=== PATIENT | female | born 1995 | race African-American/Black ===

== ENCOUNTER 2019-03-09 21:41 | Emergency (ER) | payer MEDICAID ==
[~2019-03-09] VITALS: Ht 167.6 cm; Wt 77.1 kg
[2019-03-09 21:50] VITALS: BP 118/70
--- NOTE | 2019-03-09 21:50 | NUR ---
ED Nurse Note: patient walked in to ED accompanied by her friend. C/O asthma exacerbation with SOB. patient appear to be calm and relaxed. Sp02 is 100% in room air. VSS. Patient is alert x 4 able to ambulate without difficuty. bed is in lowest position. safety measures provided. will continue to monitor
[2019-03-09] MEDS ORDERED: Ipratropium 0.02% Inh Soln 2.5ml UD HHN ONE (22:15)
[2019-03-09] MEDS ORDERED: Dexamethasone 20mg/5ml IVP ONE (22:15)
[2019-03-09] MEDS: Ipratropium 0.02% Inh Soln 2.5ml UD HHN SCH ×2 (22:25→22:42)
[2019-03-09] MEDS ORDERED: Solu-MEDROL 125mg Inj IVP ONE (22:30)
--- NOTE | 2019-03-09 23:02 | Emergency Room Report ---
History of Present Illness General Chief Complaint: Asthma Source: Patient Present Illness HPI 23-year-old female history of asthma, history of smoking presents with shortness of breath that started prior to arrival, patient states that she is been utilizing her pump, she is to prior to arrival which has helped, no aggravating factors, she does endorse some cough, no chest pain no abdominal pain she presents for evaluation Allergies: Coded Allergies: MOLD (Verified Allergy, Unknown, 03/09/19) Uncoded Allergies: POLLEN (Allergy, Unknown, 03/09/19) Patient History Past Medical History: see triage record Social History: Reports: smoking Last Menstrual Period: 02/16/19 Now: No Reviewed Nursing Documentation: PMH: Agreed; PSxH: Agreed Nursing Documentation-PMH Hx Asthma: Yes Review of Systems Constitutional: Denies: chills, fever Eye: Denies: blurred vision, double vision ENT: Denies: throat pain, nasal discharge Respiratory: Reports: cough, shortness of breath, wheezing Cardiovascular: Denies: chest pain, palpitations Gastrointestinal: Denies: abdominal pain, diarrhea, nausea, vomiting Genitourinary: Denies: dysuria, pain Musculoskeletal: Denies: back pain, muscle pain Skin: Denies: rash, lesions Neurological: Denies: headache, focal weakness Hematologic/Lymphatic: Denies: easy bleeding, easy bruising All Other Systems: negative except mentioned in HPI Physical Exam Vital Signs Date Time Temp Pulse Resp B/P (MAP) Pulse Ox O2 Delivery O2 Flow Rate FiO2 03/09/19 21:44 98.1 97 18 120/75 (90) 95 Room Air 03/09/19 22:25 21 Sp02 EP Interpretation: reviewed, normal General Appearance: well appearing, no apparent distress, alert, other - Patient is on cell phone comfortable Head: normocephalic, atraumatic Eyes: bilateral eye PERRL, bilateral eye EOMI ENT: uvula midline, moist mucus membranes Neck: supple, thyroid normal, supple/symm/no masses Respiratory: no respiratory distress, no retraction, no accessory muscle use, wheezing - Wheezing mild bilaterally Cardiovascular #1: normal peripheral pulses, regular rate, rhythm, no edema, no gallop, no murmur Gastrointestinal: non tender, soft, no guarding, no rebound Musculoskeletal: normal inspection Neurologic: alert, oriented x3 Psychiatric: mood/affect normal Skin: no rash, warm/dry Medical Decision Making Diagnostic Impression: Primary Impression: Asthma Additional Impression: Asthma attack ER Course Patient most likely with an asthma exacerbation low suspicion for ACS, low suspicion for PE, patient's tachycardia is most likely resulted from her albuterol inhaler prior to coming Duo nebs, steroids, Chest x-ray shows no sign of pneumonia Patient improved with DuoNeb treatment, disposition home with return precautions , patient was medically complex [place] better after DuoNeb's, disposition home with return precautions Chest X-Ray Diagnostic Results Chest X-Ray Diagnostic Results : Chest X-Ray Ordered: Yes # of Views/Limited/Complete: 1 View Indication: Shortness of Breath EP Interpretation: Yes Interpretation: no consolidation, no effusion, no pneumothorax, no acute cardiopulmonary disease Impression: No acute disease Electronically Signed by: Bharathi Luna MD Last Vital Signs Date Time Temp Pulse Resp B/P (MAP) Pulse Ox O2 Delivery O2 Flow Rate FiO2 03/09/19 22:42 81 18 100 Room Air 21 03/09/19 21:50 98.5 118/70 Disposition: HOME, SELF-CARE Condition: Stable Scripts Prednisone* (PREDNISONE*) 20 Mg Tablet 40 MG ORAL DAILY for 4 Days, #8 TAB Prov: Bharathi Luna MD 03/10/19 Albuterol Sulfate* (ALBUTEROL SULFATE MDI*) 8.5 Gm Hfa.aer.ad 2 PUFF INH Q6H PRN for Shortness of Breath, #1 EA 0 Refills Prov: Bharathi Luna MD 03/10/19 Referrals: [facility]ERR[facility] (PCP) [facility] Patient Instructions: Asthma, Adult Additional Instructions: The patient was provided with discharge instructions, notified to follow-up with a primary care doctor and or specialist in the next 24-48 hours, and to return to the ED if they have worsening of their symptoms. Please note that this report is being documented using [employer] technology. This can lead to erroneous entry secondary to incorrect interpretation by the dictating instrument. Bharathi Luna MD Mar 09, 2019 23:02
[2019-03-09 23:45] VITALS: BP 116/70
[2019-03-10] MEDS ORDERED: PREDNISONE20 MG ORAL (00:23)
[2019-03-10] MEDS ORDERED: ALBUTEROL SULF8.5 GM INH (00:23)
[2019-03-10 00:30] VITALS: BP 120/71
--- NOTE | 2019-03-10 00:30 | NUR ---
ER DISCHARGE NOTE: Patient is cleared to be discharged per ERMD, pt is aox4, on room air, with stable vital signs. pt was given dc and prescription instructions, pt was able to verbalize understanding, pt id band and iv site removed without complications. pt is able to ambulate with steady gait. pt took all belongings.
--- NOTE | 2019-03-10 13:18 | Diagnostic Imaging Report ---
Indication: Dyspnea Comparison: None A single view chest radiograph was obtained. Findings: Cardiomediastinal appearance is within normal limits for age. The lungs are clear. Pulmonary vascularity is appropriate. The diaphragmatic contour is smooth and costophrenic angles are sharp. No pleural effusions are identified. The bones are unremarkable. Impression: No acute findings
== END 2019-03-10 00:30 | disposition home or self-care (01) ==
LOC: EMR 21:51
DX: J45.901 Unspecified asthma with (acute) exacerbation (principal); R00.0 Tachycardia, unspecified
CPT/HCPCS: 71045; 94640; 94664; 96361; 96374; 96375; 99284; J2930